=== PATIENT | male | born 1980 | race African-American/Black ===

== ENCOUNTER 2020-07-16 10:32 | Emergency (ER) | payer OTHER, SELFPAY ==
[2020-07-16 10:39] VITALS: BP 117/98; PULSE 75; RESP 16; TEMP 36.6; O2SAT 100
--- NOTE | 2020-07-16 10:46 | ED_ITS ---
HPI - Nausea/Vomiting/Diarrhea General Chief complaint: Nausea/Vomiting/Diarrhea Stated complaint: DIARRHEA/VOMITING Source: patient and RN notes reviewed Limitations: no limitations History of Present Illness HPI Narrative: The patient, a vaccinated smoker/occasional drinker, presents with abdominal complaints. Patient states he has about 1/2-week history of concurrent onset of vomiting x4 to 5/day associated with similar diarrhea. His children preceded him with symptoms over the weekend; no fever, foreign travel, abdominal pain -he has s/p appendectomy about 2000. No blood, frequency/urgency/dysuria. Symptoms are improving today are worse with eating, and are mild. Related Data Allergies Allergy/AdvReac Type Severity Reaction Status Date / Time Penicillins Allergy Mild Verified 03/30/17 14:33 Review of Systems Review of Systems: Narrative: General/Constitutional: No weight loss,fever Eyes: N0: Redness,discharge Ears/Nose/Throat: No: Epistaxis,ear discharge Respiratory: Denies: Hemoptysis Gastrointestinal: Bleeding-rectal, REPORTS vomiting Skin: No Lumps, eruption Neurologic: No Focal Weakness,Sz Hematologic: Denies: Petechiae/Purpura Psychiatric: No: Suicida ideationl All Other Systems: Reviewed and Negative PMFSH Comments At time of signature, agree with nursing past medical, surgical, social and family history. There is no relevant family history pertinent to the presenting complaint Exam Narrative: Exam Narrative: General Appearance: Well appearing, , Conjunctiva clear Ears: External ear normal Nose: Normal nose Mouth/Throat: Normal appearing, Normal lips, Supple Respiratory: Airway patent, No respiratory distress Abdomen: Soft, Non-tender, No massess, No organomegaly (no rebound/ surgical signs), Hyperactive bowel sounds Musculoskeletal: Full ROM Skin: Warm, Dry Neurological: A&O x3, CN II-X intact Psychiatric: Normal mood, Normal affect Course Vital Signs Vital signs: Vital Signs Temperature 98 F 07/16/20 10:39 Pulse Rate 75 07/16/20 10:39 Respiratory Rate 16 07/16/20 10:39 Blood Pressure 117/98 H 07/16/20 10:39 Pulse Oximetry 100 07/16/20 10:39 Temperature 98 F 07/16/20 10:39 Pulse Rate 75 07/16/20 10:39 Respiratory Rate 16 07/16/20 10:39 Blood Pressure 117/98 H 07/16/20 10:39 Pulse Oximetry 100 07/16/20 10:39 Discharge Plan Discharge Clinical Impression: Nausea vomiting and diarrhea Patient Disposition: Home, Self-Care Condition: Stable Instructions: Acute Nausea and Vomiting (ED) Prescriptions: New ondansetron HCl [Zofran] 4 mg tablet 4 mg PO Q8H PRN (Reason: nausea and vomiting) Qty: 10 RF: 0 diphenoxylate-atropine [Lomotil] 2.5-0.025 mg tablet 1 tablet PO DAILY Qty: 5 RF: 0 Follow-up/Referrals: PHYSICIAN,FAMILY ENGAGEMENT SPECIALIST [Primary Care Provider] - Stand Alone Forms: Work/School Release IP
== END 2020-07-16 11:06 | disposition home or self-care (01) ==
PROVIDERS: Emergency Provider Emergency Medicine
DX: R11.2 Nausea with vomiting, unspecified (principal); R19.7 Diarrhea, unspecified; F17.200 Nicotine dependence, unspecified, uncomplicated
CPT/HCPCS: 99213; G0463

== ENCOUNTER 2021-02-10 14:49 | Emergency (ER) | payer OTHER, SELFPAY ==
[2021-02-10 15:03] VITALS: BP 143/90; PULSE 79; RESP 18; TEMP 37.2; O2SAT 100
--- NOTE | 2021-02-10 15:41 | ED.URI ---
HPI - URI/Sore Throat General Chief Complaint: Upper Respiratory Infection Stated Complaint: fever,diarrhea,headache Time Seen by Provider: 02/10/21 15:10 Source: patient and RN notes reviewed Mode of arrival: ambulatory Limitations: no limitations History of Present Illness HPI Narrative: Patient presents today complaining of fever up to 101.7, cough, headache, fatigue, body aches, diarrhea since yesterday. He initially had some vomiting yesterday, but this has since resolved. He has been able to keep down fluids since his vomiting stopped. Reports some sick contacts with nonspecific symptoms and no diagnoses. He has been taking some Tylenol with some relief of fever. He currently rates his headache 5/. MD elicited complaint: fever and cough Related Data Home Medications Medication Instructions Recorded Confirmed loratadine 10 mg tablet 10 mg PO DAILY 08/05/20 02/10/21 Allergies Allergy/AdvReac Type Severity Reaction Status Date / Time Penicillins Allergy Mild Unknown Verified 08/05/20 14:50 grass pollen Allergy Unknown Verified 02/10/21 15:11 mold Allergy Unknown Verified 02/10/21 15:11 Review of Systems Review of Systems: CONSTITUTIONAL: Denies chills, or sweats.+ Fever, body aches, fatigue EYES: Denies visual changes, redness, or discharge. ENT: Denies rhinorrhea, congestion, sore throat, or otalgia. CARDIOVASCULAR: Denies chest pain, palpitations, or edema. RESPIRATORY: Denies dyspnea.+ Cough GASTROINTESTINAL: Denies abdominal pain, nausea. + Vomiting, diarrhea GENITOURINARY: Denies dysuria or hematuria. SKIN: Denies rash, itching, or wounds. MUSCULOSKELETAL: Denies back pain, joint pain, or myalgia. NEUROLOGIC: Denies numbness, tingling, or weakness.+ Headache PSYCH: Denies depression or anxiety. FORMERLY [facility], [facility] Past Medical History Medical History Environmental allergies GERD (gastroesophageal reflux disease) Surgical History Surgical History History of appendectomy (~2000) History of arthroscopy of left shoulder 2006 - acromion debridement, clavicle resection, biceps tendon release Family History Family History Father Alcoholic Mother Heart disease Hypertension Social History Social History Smoking packs per day: 0.5 Smoking cigarettes per day: 10.0 Years smoked: 20 Smoking pack-years: 10.00 Smoking status: Current every day smoker Tobacco type: cigarettes Alcohol intake: current Drinks per week: 2 Alcohol use details: Vodka Substance use: never Substance use type: does not use 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 Please see nursing chart for further information. There is no relevant family history pertinent to the presenting complaint Exam Narrative: GENERAL: Mildly ill-appearing, well-nourished, and in no acute distress. HEAD: Normocephalic, atraumatic. EYES: EOMI. No redness or drainage. Conjunctivae normal. ENT: Mucous membranes pink and moist. Nares clear. No rhinorrhea. TMs normal bilaterally. Throat normal. Uvula midline. NECK: Normal AROM. Supple. No lymphadenopathy. CHEST: No respiratory distress. Clear to auscultation. HEART: Regular rate and rhythm. No murmur appreciated. Normal peripheral pulses. ABDOMEN: Soft, nontender, nondistended, normal active bowel sounds. EXTREMITIES: Normal range of motion. No edema. SKIN: Warm, dry, no rash. Capillary refill normal. Normal skin turgor.
[2021-02-11 14:39] LABS: SARS-CoV-2 RNA PCR Positive
== END 2021-02-10 15:59 | disposition home or self-care (01) ==
PROVIDERS: Emergency Provider Nurse Practitioner; PCP Family Medicine
DX: B34.9 Viral infection, unspecified (principal); Z20.822 Contact with and (suspected) exposure to COVID-19; F17.210 Nicotine dependence, cigarettes, uncomplicated; K21.9 Gastro-esophageal reflux disease without esophagitis
CPT/HCPCS: 87426; 87804; 99213; C9803; G0463; U0003; U0005

== ENCOUNTER 2023-01-14 10:04 | Emergency (ER) | payer OTHER, SELFPAY ==
--- NOTE | 2023-01-14 10:13 | ED.URI ---
HPI - URI/Sore Throat General Chief Complaint: Upper Respiratory Infection Stated Complaint: Cough, Lethargic, Sore Throat Time Seen by Provider: 01/14/23 10:31 Source: patient and RN notes reviewed Mode of arrival: ambulatory Limitations: no limitations History of Present Illness HPI Narrative: 42-year-old male presents with concern for 2 day history of sore throat, headache, fatigue, chills, body aches. He reports taking DayQuil without relief. MD elicited complaint: cough and sore throat Related Data Allergies Allergy/AdvReac Type Severity Reaction Status Date / Time Penicillins Allergy Mild Unknown Verified 08/25/22 07:50 grass pollen Allergy Unknown Verified 08/25/22 07:50 mold Allergy Unknown Verified 08/25/22 07:50 Review of Systems Review of Systems: CONSTITUTIONAL: Reports malaise, chills, feeling feverish EYES: Denies visual changes, redness, or discharge. ENT: Denies rhinorrhea, congestion, sinus pain, otalgia reports postnasal drainage and sore throat. CARDIOVASCULAR: Denies chest pain, palpitations, or edema. RESPIRATORY: Reports cough. Denies dyspnea. GASTROINTESTINAL: Denies abdominal pain, nausea, vomiting, diarrhea SKIN: Denies rash or itching. MUSCULOSKELETAL: Reports myalgia. NEUROLOGIC: Reports headache. All systems reviewed & are unremarkable except as noted in HPI and below PMFSH Past Medical History Medical History Environmental allergies GERD (gastroesophageal reflux disease) Surgical History Surgical History History of appendectomy (~2000) History of arthroscopy of left shoulder 2006 - acromion debridement, clavicle resection, biceps tendon release Family History Family History Father Alcoholic Mother Heart disease Hypertension Social History Social History (Updated 08/25/22 @ 07:51 by Dee Dee Jean MA) Smoking packs per day: 0.5 Smoking cigarettes per day: 10.0 Years smoked: 20 Smoking pack-years: 10.00 Smoking status: Current every day smoker Tobacco type: cigarettes Alcohol intake: current Drinks per week: 2 Alcohol use details: Vodka Substance use: never Substance use type: does not use Lack of Transportation: No Lack of Food: Never True Current Housing: I Have Housing Concerned About Future Housing: No Difficulty Paying Gas/Electric Bills: No Difficulty Paying for Meds: No Currently Unemployed: No Difficulty w/ Childcare or Family Care: No Living arrangements: with family Occupation/Education: occupation 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 There is no relevant family history pertinent to the presenting complaint Exam Narrative: GENERAL: Well-appearing, well-nourished, and in no acute distress. HEAD: Normocephalic EYES: PERRLA, conjunctivae clear ENT: Nares clear. Mucous membranes moist. TM pearly rodríguez with sharp light reflex bilaterally; no tragal tenderness. Oropharynx not erythematous without lesions. Tonsils not enlarged and without exudate, no drooling, no hoarseness, no trismus, uvula midline. NECK: Supple. No lymphadenopathy CHEST: Clear to auscultation, breath sounds equal. No wheezing, rhonchi, rales, or stridor. No respiratory distress, speaks in full sentences. HEART: Regular rate and rhythm. No murmur heard. SKIN: Warm, dry, no rash. NEURO: Alert and oriented x3. PSYCH: Normal mood and affect Course Course Emergency Course: Patient is aware of diagnosis, understands and agrees to treatment plan. Anticipatory guidance given. Patient agrees to follow-up a
[2023-01-14 10:19] VITALS: BP 142/79; PULSE 88; RESP 16; TEMP 36.9; O2SAT 98
== END 2023-01-14 10:46 | disposition home or self-care (01) ==
PROVIDERS: Emergency Provider Nurse Practitioner; PCP Family Medicine
DX: B34.9 Viral infection, unspecified (principal); F17.210 Nicotine dependence, cigarettes, uncomplicated; Z20.822 Contact with and (suspected) exposure to COVID-19
CPT/HCPCS: 87081; 87426; 87804; 87880; 99213; C9803; G0463

== ENCOUNTER 2023-03-02 07:59 | Outpatient (CLI) | payer OTHER, SELFPAY ==
[2023-03-02 14:03] LABS: Basophils Percent Auto 0.6 % (0.2-1.2); Eosinophils Percent Auto 0.6 % (0-4.4); Immature Granulocyte Absolute 0.03 K/mm3 (0.00-0.031); Immature Granulocyte Percent A 0.4 % (0-0.5); Lymphocytes Percent Auto 40.3 % (18.3-44.2); Mean Corpuscular HGB Conc 32.6 g/dl (32-36); Mean Corpuscular Hemoglobin 30.4 pg (26-34); Mean Corpuscular Volume 93.1 fl (80-100); Mean Platelet Volume 10.9 fl (7.4-10.4); Monocytes Absolute Auto 0.5 K/mm3 (0.1-0.6); Monocytes Percent Auto 7.5 % (2.6-8.5); Neutrophils Absolute Auto 3.5 K/mm3 (1.3-6.7); Neutrophils Percent Auto 50.6 % (45.5-73.1); Platelet Count Result 178 k/mm3 (150-375); Red Blood Count 4.94 M/mm3 (4.6-6.20); Red Cell Distribution Width 13.5 % (11.5-14.5); White Blood Count 6.9 K/mm3 (4.5-10.0)
[2023-03-02 15:24] LABS: Alanine Aminotransferase 34 U/L (6-50); Albumin Level 4.5 g/dL (3.5-5.1); Alkaline Phosphatase 77 U/L (38-126); Anion Gap 8 mmol/L (8-16); Aspartate Amino Transferase 74 U/L (17-59); Bilirubin,Total 0.6 mg/dL (0.2-1.3); Blood Urea Nitrogen 15 mg/dL (9-20); Calcium 9.6 mg/dL (8.4-10.2); Carbon Dioxide 26 mmol/L (22-30); Chloride 105 mmol/L (98-107); Cholesterol 188 mg/dL (0-200); Estimated Glomerular Filt Rate > 60; Glucose 83 mg/dL (65-110); HDL Direct 45 mg/dL; Potassium 4.2 mmol/L (3.4-5.0); Sodium 139 mmol/L (137-145); Triglycerides 127 mg/dL (<150)
[2023-03-02 15:37] LABS: LDL Cholesterol Direct 102 mg/dL
[2023-03-02 15:52] LABS: Thyroid Stimulating Hormone 0.846 uIU/mL (0.465-4.680)
[2023-03-02 16:37] LABS: Hemoglobin A1C 5.9 % (<5.7)
[2023-03-07 07:29] LABS: Vitamin D 1,25 (OH)2 Total 53 pg/mL (18-72); Vitamin D2 1,25 (OH)2 <8 pg/mL; Vitamin D3 1,25 (OH)2 53 pg/mL
== END 2023-03-02 08:00 | disposition home or self-care (01) ==
LOC: ANHGOSHLAB 08:00
PROVIDERS: PCP Family Medicine; Visit Provider Nurse Practitioner Family
DX: Z00.00 Encounter for general adult medical examination without abnormal findings (principal); E55.9 Vitamin D deficiency, unspecified; E78.5 Hyperlipidemia, unspecified
CPT/HCPCS: 36415; 80053; 80061; 82652; 83036; 84443; 85025

== ENCOUNTER 2023-03-10 07:57 | Outpatient (CLI) | payer OTHER, SELFPAY ==
[2023-03-10 13:55] LABS: Hepatitis B Surface Antigen Negative (Negative)
[2023-03-10 14:00] LABS: HAV RESULT Negative (Negative); Hepatitis B Core IgM Result Negative (Negative)
[2023-03-10 14:12] LABS: Hepatitis C Virus Antibody Negative (Negative)
== END 2023-03-10 07:58 | disposition home or self-care (01) ==
LOC: ANHGOSHLAB 07:58
PROVIDERS: PCP Family Medicine; Visit Provider Nurse Practitioner Family
DX: R74.8 Abnormal levels of other serum enzymes (principal)
CPT/HCPCS: 36415; 80074

== ENCOUNTER 2023-06-15 06:40 | Day surgery (SDC) | payer OTHER, SELFPAY ==
[2023-06-08 14:47] VITALS: BMI 27.2
[2023-06-15 07:25] VITALS: BP 121/80; PULSE 75; RESP 16; TEMP 36.6; O2SAT 99; BMI 26.2
[2023-06-15] MEDS: LACTATED RINGERS 1,000 ML 150 ML IV CONT (07:37)
--- NOTE | 2023-06-15 07:41 | WPDANESEPPF ---
Anes - Initial Pre Proc Eval Procedure: Operation Date: 06/15/23 08:30 Proposed Procedures p Diagnostic Colonoscopy - Joe Todd MD Date/Time: 06/15/23 07:41 Surgeon: Joe Todd MD Pre Op Diagnosis: Hemorrhage of Anus and Rectum Patient Data Age: 42 Gender: M Height: 1.73 m Weight: 78.2 kg Last Vital Signs Temp 36.6 C 06/15/23 07:25 Pulse 75 06/15/23 07:25 Resp 16 06/15/23 07:25 BP 121/80 06/15/23 07:25 Pulse Ox 99 06/15/23 07:25 O2 Del Method Room Air 06/15/23 07:25 Allergies Allergy/AdvReac Type Severity Reaction Status Date / Time Penicillins Allergy Mild Unknown Verified 06/15/23 07:23 grass pollen Allergy Unknown Verified 06/15/23 07:23 mold Allergy Unknown Verified 06/15/23 07:23 Home Medications Medication Instructions Recorded Confirmed Type valacyclovir 500 mg tablet 2,000 mg PO Q12H PRN cold sores 03/02/23 06/15/23 Rx #30 tabs multivitamin 1 tablet PO DAILY 06/10/23 06/15/23 History Patient hx anesthesia problems: none Family hx anesthesia problems: none Results Review: All pre-operative results and documents have been reviewed as part of the pre-operative evaluation. [facility] Past Medical History Medical History Environmental allergies GERD (gastroesophageal reflux disease) Surgical History Surgical History History of appendectomy (~2000) History of arthroscopy of left shoulder 2006 - acromion debridement, clavicle resection, biceps tendon release Family History Family History Father Alcoholic Mother Heart disease Hypertension Social History Social History Smoking packs per day: 0.5 Smoking cigarettes per day: 10.0 Years smoked: 20 Smoking pack-years: 10.00 Smoking status: Current every day smoker Tobacco type: cigarettes Alcohol intake: current Drinks per week: 2 Alcohol use details: pt states one night a week will have 4 shots and one mixed drink Substance use: never Substance use type: does not use Lack of Transportation: No Lack of Food: Never True Current Housing: I Have Housing Concerned About Future Housing: No Difficulty Paying Gas/Electric Bills: No Difficulty Paying for Meds: No Currently Unemployed: No Difficulty w/ Childcare or Family Care: No Living arrangements: with family Occupation/Education: occupation 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 Gender identity (if verbalized by the patient): Male Sexual Orientation (if Verbalized by the Patient): Straight or Heterosexual Agree to blood products: Yes Anes - Eval Final PreProcedure Day of Procedure 06/15/23 07:41 Patient weight: normal Heart: regular rate and rhythm Lungs: clear to auscultation Airway: Mallampati scale class II Neurological: alert and oriented Last oral intake: >/= 8 hours ASA classification: II Emergent: no Anesthetic plan: proceed Anesthesia type and monitoring: general GIVS and standard monitoring Results Review: All pre-operative results and documents have been reviewed as part of the pre-operative evaluation. Informed Consent: The patient's anesthetic plan and its attendant risks and benefits were discussed with the patient/family/POA. Questions were solicited and answers provided to the satisfaction of the patient/family/POA.
--- NOTE | 2023-06-15 07:52 | PM.HPGS ---
History of Present Illness History of Present Illness Consent: Risks, benefits, and alternatives have been discussed and questions answered. Patient agrees to proceed with procedure. Chief complaint: Hemorrhage of Anus and Rectum Narrative: Natalio Shane is a 42 year old male bright red blood per rectum with wiping. Patient has noticed this off and on for 10 years. He occasionally will have rectal pain attributed to hemorrhoids. He reports his bowel habits are normal. He has regular bowel movements with brown stool. Is any weight loss. Family history is noncontributory. Review of Systems Review of Systems: All systems reviewed & are unremarkable except as noted in HPI and below PMFSH Past Medical History Medical History Environmental allergies GERD (gastroesophageal reflux disease) Surgical History Surgical History History of appendectomy (~2000) History of arthroscopy of left shoulder 2006 - acromion debridement, clavicle resection, biceps tendon release Family History Family History Father Alcoholic Mother Heart disease Hypertension Social History Social History Smoking packs per day: 0.5 Smoking cigarettes per day: 10.0 Years smoked: 20 Smoking pack-years: 10.00 Smoking status: Current every day smoker Tobacco type: cigarettes Alcohol intake: current Drinks per week: 2 Alcohol use details: pt states one night a week will have 4 shots and one mixed drink Substance use: never Substance use type: does not use Lack of Transportation: No Lack of Food: Never True Current Housing: I Have Housing Concerned About Future Housing: No Difficulty Paying Gas/Electric Bills: No Difficulty Paying for Meds: No Currently Unemployed: No Difficulty w/ Childcare or Family Care: No Living arrangements: with family Occupation/Education: occupation 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 Gender identity (if verbalized by the patient): Male Sexual Orientation (if Verbalized by the Patient): Straight or Heterosexual Agree to blood products: Yes Meds Home Medications and Allergies Home Medications Medication Instructions Recorded Confirmed Type valacyclovir 500 mg tablet 2,000 mg PO Q12H PRN cold sores 03/02/23 06/15/23 Rx #30 tabs multivitamin 1 tablet PO DAILY 06/10/23 06/15/23 History Allergies Allergy/AdvReac Type Severity Reaction Status Date / Time Penicillins Allergy Mild Unknown Verified 06/15/23 07:23 grass pollen Allergy Unknown Verified 06/15/23 07:23 mold Allergy Unknown Verified 06/15/23 07:23 Vital Signs Vital Signs - 24 hr 06/15/23 07:25 Temperature 97.9 F Pulse Rate 75 Respiratory Rate 16 Blood Pressure 121/80 Pulse Oximetry 99 Oxygen Delivery Room Air Exam Narrative: Physical exam reveals patient to be alert. Vital signs stable. HEENT is unremarkable. Patient is anicteric. Lungs are clear to auscultation and percussion. Heart is without murmur or extra sounds. Abdomen bowel sounds are present soft nontender with no organomegaly. Digital external rectal exam is normal. Assessment and Plan Assessment and plan (1) Rectal bleeding: Code(s): K62.5 - Hemorrhage of anus and rectum Status: Acute Assessment and Plan: Patient with ongoing rectal bleeding. Hemorrhoids are suspected. Plan for stool softeners. A colonoscopy will be performed to exclude any pathology. Further recommendations may be given after endoscopy.
[2023-06-15 08:40] VITALS: BP 87/62; PULSE 77; RESP 16; O2SAT 94
[2023-06-15 08:50] VITALS: BP 87/62; PULSE 63; RESP 18; O2SAT 99
--- NOTE | 2023-06-15 08:58 | WPDANESPN ---
Anes - Prog Note Post-Op Date/Time: 06/15/23 08:58 Cardiovascular status: normal Respiratory status: normal Airway patency: baseline Mental status: baseline Vital Signs: Last Vital Signs Temp 36.6 C 06/15/23 07:25 Pulse 63 06/15/23 08:50 Resp 18 06/15/23 08:50 BP 87/62 L 06/15/23 08:50 Pulse Ox 99 06/15/23 08:50 O2 Del Method Room Air 06/15/23 08:50 Pain Score (VAS): 0/10 I/O: Intake & Output 06/14/23 06/15/23 06/15/23 23:59 07:59 15:59 Intake Total 500 Balance 500 Patient Feedback: Patient satisfied with anesthetic care.
[2023-06-15 09:00] VITALS: BP 119/78; PULSE 63; RESP 18; O2SAT 99
== END 2023-06-15 09:10 | disposition home or self-care (01) ==
PROVIDERS: PCP Family Medicine; Visit Provider Internal Medicine Gastroenterology
PROC: 0DJD8ZZ Inspection of Lower Intestinal Tract, Via Natural or Artificial Opening Endoscopic (ICD-10-PCS; CPT 45378; principal; 2023-06-15 08:30)
DX: K62.5 Hemorrhage of anus and rectum (principal); K64.8 Other hemorrhoids
CPT/HCPCS: 45378

== ENCOUNTER 2023-11-04 13:43 | Emergency (ER) | payer OTHER, SELFPAY ==
--- NOTE | 2023-11-04 13:51 | ED.SKABFB ---
HPI - Skin/Abscess/Foreign Bdy General Chief complaint: Skin/Abscess/Foreign Body Stated complaint: painful area buttocks/didscharge Time Seen by Provider: 11/04/23 13:54 Source: patient Mode of arrival: ambulatory Limitations: no limitations History of Present Illness HPI narrative: Shahid is a 42-year-old male patient presenting to the clinic today with complaints a possible abscess to the buttocks. He reports for the past few days he has had pain to the right inner glut near the anus, today he noticed drainage coming from the area. Was playing sand volleyball in [place] [place] last Tuesday and got some sand in his pants that got in between his butt cheeks. Does have 100 degree F temperature in the clinic today. Heart rate is elevated at 120. History of hemorrhoids but does not think that that is the cause of this Related Data Home Medications Medication Instructions Recorded Confirmed multivitamin 1 tablet PO DAILY 06/10/23 06/15/23 Allergies Allergy/AdvReac Type Severity Reaction Status Date / Time Penicillins Allergy Mild Unknown Verified 11/04/23 14:00 grass pollen Allergy Unknown Verified 11/04/23 14:00 mold Allergy Unknown Verified 11/04/23 14:00 Review of Systems Review of Systems: Pertinent positives per HPI. Patient denies any rash, headache, visual changes, dizziness, cough, runny nose, sore throat, shortness of breath, chest pain, palpitations, nausea, vomiting, diarrhea, constipation, abdominal pain, or any urinary issues. [facility] Past Medical History Medical History Environmental allergies GERD (gastroesophageal reflux disease) Surgical History Surgical History History of appendectomy (~2000) History of arthroscopy of left shoulder 2006 - acromion debridement, clavicle resection, biceps tendon release Family History Family History Father Alcoholic Mother Heart disease Hypertension Social History Social History Smoking packs per day: 0.5 Smoking cigarettes per day: 10.0 Years smoked: 20 Smoking pack-years: 10.00 Smoking status: Current every day smoker Tobacco type: cigarettes Alcohol intake: current Drinks per week: 2 Alcohol use details: pt states one night a week will have 4 shots and one mixed drink Substance use: never Substance use type: does not use Lack of Transportation: No Lack of Food: Never True Current Housing: I Have Housing Concerned About Future Housing: No Difficulty Paying Gas/Electric Bills: No Difficulty Paying for Meds: No Currently Unemployed: No Difficulty w/ Childcare or Family Care: No Living arrangements: with family Occupation/Education: occupation 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 There is no relevant family history pertinent to the patient complaint. Exam Narrative: General: Well-developed, well nourished, in no apparent distress Head: Normocephalic, atraumatic. Cardio: Regular rate and rhythm, s1 and s2 normal, no murmur appreciated. Resp: Clear to auscultation bilaterally, no rhonchi, rales, wheezing or rubs. Integumentary: [place], warm, and dry, nontender to palpation over the coccyx, palpable perirectal abscess to the left inner glut near the anus. Able to express brown purulent discharge from the left glut. Mild erythema, tenderness, and redness noted. No subcutaneous emphysema, redness, or swelling of the perineum noted Course Course Emergency Course: [place]
[2023-11-04 14:01] VITALS: BP 149/92; PULSE 120; RESP 18; TEMP 37.8; O2SAT 100
== END 2023-11-04 14:24 | disposition home or self-care (01) ==
PROVIDERS: Emergency Provider Nurse Practitioner Family; PCP Family Medicine
DX: K61.1 Rectal abscess (principal); F17.210 Nicotine dependence, cigarettes, uncomplicated; K21.9 Gastro-esophageal reflux disease without esophagitis
CPT/HCPCS: 87070; 87205; 99213; G0463

== ENCOUNTER 2023-12-21 08:04 | Outpatient (CLI) | payer OTHER, SELFPAY ==
[2023-12-21 13:36] LABS: Alanine Aminotransferase 45 U/L (6-50); Albumin Level 4.9 g/dL (3.5-5.1); Alkaline Phosphatase 70 U/L (38-126); Anion Gap 8 mmol/L (4-12); Aspartate Amino Transferase 94 U/L (17-59); Bilirubin,Total 0.7 mg/dL (0.2-1.3); Blood Urea Nitrogen 16 mg/dL (9-20); Carbon Dioxide 25 mmol/L (22-30); Chloride 103 mmol/L (98-107); Estimated Glomerular Filt Rate > 60; Glucose 89 mg/dL (65-110); Potassium 4.2 mmol/L (3.4-5.0); Sodium 136 mmol/L (137-145)
[2023-12-21 13:39] LABS: Basophils Percent Auto 0.3 % (0.2-1.2); Eosinophils Percent Auto 0.7 % (0-4.4); Hematocrit 46.5 % (42.0-52.0); Immature Granulocyte Absolute 0.01 K/mm3 (0.00-0.031); Immature Granulocyte Percent A 0.2 % (0-0.5); Lymphocytes Absolute Auto 2.97 K/mm3 (0.9-3.2); Lymphocytes Percent Auto 49.7 % (18.3-44.2); Mean Corpuscular HGB Conc 34.4 g/dl (32-36); Mean Corpuscular Hemoglobin 30.7 pg (26-34); Mean Corpuscular Volume 89.1 fl (80-100); Mean Platelet Volume 10.6 fl (7.4-10.4); Monocytes Absolute Auto 0.4 K/mm3 (0.1-0.6); Neutrophils Absolute Auto 2.6 K/mm3 (1.3-6.7); Neutrophils Percent Auto 43.1 % (45.5-73.1); Platelet Count Result 202 k/mm3 (150-375); Red Blood Count 5.22 M/mm3 (4.6-6.20); Red Cell Distribution Width 13.5 % (11.5-14.5)
[2023-12-21 13:45] LABS: Cholesterol 230 mg/dL (0-200); HDL Direct 51 mg/dL; Triglycerides 117 mg/dL (<150)
[2023-12-21 13:56] LABS: LDL Cholesterol Direct 116 mg/dL
[2023-12-21 14:13] LABS: Prostate Specific Antigen 0.6 ng/mL (< OR = 4.0)
[2023-12-21 17:47] LABS: Vitamin D 25 Hydroxy 25.9 ng/mL
[2023-12-21 19:10] LABS: Hemoglobin A1C 5.9 % (<5.7)
== END 2023-12-21 08:05 | disposition home or self-care (01) ==
LOC: ANHGOSHLAB 08:05
PROVIDERS: PCP Family Medicine; Visit Provider Family Medicine
DX: Z00.00 Encounter for general adult medical examination without abnormal findings (principal); E78.5 Hyperlipidemia, unspecified; R73.9 Hyperglycemia, unspecified; E55.9 Vitamin D deficiency, unspecified; E53.8 Deficiency of other specified B group vitamins; K64.9 Unspecified hemorrhoids; R03.0 Elevated blood-pressure reading, without diagnosis of hypertension; Z79.899 Other long term (current) drug therapy; Z12.5 Encounter for screening for malignant neoplasm of prostate
CPT/HCPCS: 36415; 80053; 80061; 82306; 82607; 83036; 84153; 84443; 85025; G0103

== ENCOUNTER 2024-06-05 08:25 | Emergency (ER) | payer OTHER, SELFPAY ==
--- NOTE | 2024-06-05 08:33 | ED_ITS ---
HPI - URI/Sore Throat General Chief Complaint: Upper Respiratory Infection Stated Complaint: COUGH/HEADACHE/BODY ACHES/FEVER Time Seen by Provider: 06/05/24 08:50 Source: patient and RN notes reviewed Mode of arrival: ambulatory Limitations: no limitations History of Present Illness HPI Narrative: 43-year-old male presents with concern for 3 day history of cough, headache, body aches, fever. Reports he has been taking rib test without relief. Reports mild sore throat from coughing. Reports some runny nose and stuffy nose. Denies nausea, vomiting, diarrhea MD elicited complaint: cough Related Data Home Medications ?Medication ?Instructions ?Recorded ?Confirmed ?Last Taken ?Type multivitamin 1 tablet PO DAILY 06/10/23 12/20/23 06/13/23 History Allergies Allergy/AdvReac Type Severity Reaction Status Date / Time Penicillins Allergy Mild Unknown Verified 12/20/23 15:14 grass pollen Allergy Unknown Verified 12/20/23 15:14 mold Allergy Unknown Verified 12/20/23 15:14 Review of Systems Review of Systems: CONSTITUTIONAL: Reports malaise, chills, sweats, or fever. EYES: Denies visual changes, redness, or discharge. ENT: Reports rhinorrhea, congestion, and sore throat. CARDIOVASCULAR: Denies chest pain, palpitations, or edema. RESPIRATORY: Reports cough. Denies dyspnea. GASTROINTESTINAL: Denies abdominal pain, nausea, vomiting, diarrhea SKIN: Denies rash or itching. MUSCULOSKELETAL: Denies myalgia. NEUROLOGIC: Denies headache. All systems reviewed & are unremarkable except as noted in HPI and below PMFSH Past Medical History Medical History Recurrent genital herpes Environmental allergies GERD (gastroesophageal reflux disease) Surgical History Surgical History History of arthroscopy of left shoulder 2006 - acromion debridement, clavicle resection, biceps tendon release History of appendectomy (~2000) Family History Family History Father Alcoholic Mother Heart disease Hypertension Social History Social History Smoking packs per day: 0.25 Smoking cigarettes per day: 5.0 Years smoked: 25 Smoking pack-years: 6.25 Smoking status: Current every day smoker Tobacco type: cigarettes Alcohol intake: current Drinks per week: 2 Alcohol use details: pt states one night a week will have 4 shots and one mixed drink Substance use: never Substance use type: does not use Lack of Transportation: No Lack of Food: Never True Current Housing: I Have Housing Concerned About Future Housing: No Difficulty Paying Gas/Electric Bills: No Difficulty Paying for Meds: No Currently Unemployed: No Difficulty w/ Childcare or Family Care: No Living arrangements: with family Occupation/Education: occupation 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 There is no relevant family history pertinent to the presenting complaint Exam Narrative: GENERAL: Well-appearing, well-nourished, and in no acute distress. HEAD: Normocephalic EYES: PERRLA, conjunctivae clear ENT: Nares clear. Mucous membranes moist. TM pearly rodríguez with sharp light reflex bilaterally; no tragal tenderness. Oropharynx not erythematous without lesions. Tonsils not enlarged and without exudate, no drooling, no hoarseness, no trismus, uvula midline. NECK: Supple. No lymphadenopathy CHEST: Clear to auscultation, breath sounds equal. No wheezing, rhonchi, rales, or stridor. No respiratory distress, speaks in full sentences. Cough noted HEART: Regular rate and rhythm. No murmur heard. SKIN: Warm, dry, no rash. NEURO: Alert and oriented x3. PSYCH: Normal mood and affect Course Course Emergency Course: Patient is aware of diagnosis, understands and agrees to treatment plan. Anticipatory guidance given. Patient agrees to follow-up as directed and is aware of reasons to seek care at the emergency department. Portions of this record may have been created with voice recognition software Level of Care: Express Care Visit Vital Signs Vital signs: Reviewed. MDM - URI/Sore Throat MDM Narrative Medical decision making narrative: Differential diagnosis considered: Friedman virus, strep pharyngitis, allergic rhinitis, upper respiratory tract infection, sinusitis, rhinosinusitis, nasopharyngitis. viral pharyngitis, otitis media, otitis externa, pneumonia, bronchitis, viral cough syndrome, viral syndrome, and influenza. Exam findings show no acute concerns or changes; patient is non-toxic appearing and is in no distress. Patient is appropriate for outpatient treatment and follow-up. Lab Data Attestation: I reviewed the patient's lab results. Critical Care Time Critical Care Time Critical Care Time: No Discharge Plan Discharge Clinical Impression: Acute viral syndrome Patient Disposition: Home Condition: Stable Instructions: Viral Syndrome (ED) Additional Instructions: -Take strict precautions to prevent the spread of your virus. Be diligent about covering your cough (even when you are alone) and washing your hands frequently. -You may contagious until you have been symptom and/or fever free for 24 hours without fever reducing medicine -Alternate Ibuprofen and Tylenol for pain and fever relief (per package directions) -Some Cough medicines may make you drowsy, do not take it if you have to make important decisions, drive, or work. -Drink plenty of fluid - drink fluid with electrolytes such as Gatorade or other oral re-hydration solution. Avoid caffeine, which can make dehydration worse. -Get plenty of rest to help your body heal. -Use a cool mist humidifier for chest and nasal congestion. -Eat RAW honey or use cough drops to ease throat discomfort -Do not smoke or expose children to secondhand smoke -Wash your hands frequently. -Please follow-up with your primary care doctor in the next 1-2 days if your symptoms do not improve. -If you have any worsening of symptoms or any other concerns please go to the ED immediately. -Please take medications as prescribed and continue taking your home medications as usual. Patient Language: Montenegrin Prescriptions: New promethazine-DM 6.25-15 mg/5 mL syrup 5 ml PO Q4-6H PRN (Reason: cough) Qty: 120 0RF methylprednisolone [Medrol (Aayush)] 4 mg tablets,dose pack See Rx Instructions .ROUTE .COMPLEX Qty: 21 0RF Rx Instructions: orally per package directions No Action (DME) auto Pap See Rx Instructions .Route .MEDSUPPLY Qty: 1 0RF Rx Instructions: As directed AutoPAP 5-15 cm H2O, CPAP mask/filters/tubing and heated humidity. cholecalciferol (vitamin D3) 50 mcg (2,000 unit) tablet 50 mcg PO DAILY Qty: 90 2RF valacyclovir 500 mg tablet 2,000 mg PO Q12H PRN (Reason: cold sores) Qty: 30 1RF Rx Instructions: 4 tablets p.o. b.i.d. for 1 day with recurrence of cold sores multivitamin [Daily Multivitamin] Tablet 1 tablet PO DAILY Follow-up/Referrals: Brain Singh MD [Primary Care Provider] - Stand Alone Forms: Work/School Release IP Time of Disposition: 09:00
[2024-06-05 08:35] VITALS: BP 133/82; PULSE 94; RESP 16; TEMP 36.6; O2SAT 99
[2024-06-05 08:54] LABS: EDCOVIDSCREEN Negative (Negative); EDINFLUASCREEN Negative (Negative); EDINFLUBSCREEN Negative (Negative)
== END 2024-06-05 09:04 | disposition home or self-care (01) ==
PROVIDERS: Emergency Provider Nurse Practitioner; PCP Family Medicine
DX: B34.9 Viral infection, unspecified (principal); Z20.822 Contact with and (suspected) exposure to COVID-19; F17.210 Nicotine dependence, cigarettes, uncomplicated; K21.9 Gastro-esophageal reflux disease without esophagitis
CPT/HCPCS: 87426; 87804; 99212; G0463